=== PATIENT | male | born 1970 | race Two or more races ===

== ENCOUNTER 2016-09-17 10:16 | Emergency (ER) | payer MEDICAID ==
[~2016-09-17] VITALS: Ht 175.3 cm; Wt 81.6 kg
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
[2016-09-17] MEDS ORDERED: IBUPROFEN600 MG ORAL (11:03)
[2016-09-17] MEDS ORDERED: ZOFRAN ODT4 MG ORAL (11:03)
[2016-09-17] MEDS ORDERED: NORCO 5-325 TA1 EACH ORAL (11:03)
[2016-09-17 11:15] VITALS: BP 148/98
== END 2016-09-17 11:19 | disposition home or self-care (01) ==
LOC: EMR 11:10
DX: R51 Headache (principal); S06.9X0D Unspecified intracranial injury without loss of consciousness, subsequent encounter; V89.2XXD Person injured in unspecified motor-vehicle accident, traffic, subsequent encounter; I10 Essential (primary) hypertension
CPT/HCPCS: 99284